=== PATIENT | male | born 1960 ===

== ENCOUNTER 2019-07-05 10:38 | Day surgery (SDC) | payer OTHER ==
[2019-07-05] VITALS (9 sets, daily range): BP systolic 91–137; BP diastolic 44–77
[~2019-07-05] VITALS: Ht 172.7 cm; Wt 75.7 kg
[~2019-07-05 10:38] MED LIST: LR 1000ml 1,000 ML IVLG SCH
[2019-07-05] MEDS ORDERED: NKM (11:28)
[2019-07-05] MEDS ORDERED: LR 1000ml 1,000 ML IVLG SCH (11:29)
[2019-07-05] MEDS ORDERED: fentaNYL 100 mcg/2 mL IV PRN (11:30)
[2019-07-05] MEDS ORDERED: DiphenhydrAMINE 50mg/ml Inj IVP PRN (11:30)
[2019-07-05] MEDS ORDERED: TESTOSTERO100 MG/1 M IM (11:30)
[2019-07-05] MEDS ORDERED: Atropine Sulfate 0.4mg/ml inj IVP PRN (11:30)
[2019-07-05] MEDS ORDERED: Midazolam 2mg/2ml Inj IVP PRN (11:30)
--- NOTE | 2019-07-05 11:32 | Anethesia Preoperative Eval ---
Anesthesia Pre-op PMH/ROS General Date of Evaluation: Jul 05, 2019 Time of Evaluation: 11:30 Anesthesiologist: lianna ASA Score: ASA 2 Mallampati Score Class I : Soft palate, uvula, fauces, pillars visible Class II: Soft palate, uvula, fauces visible Class III: Soft palate, base of uvula visible Class IV: Only hard plate visible Mallampati Classification: Class II Surgeon: chava Surgical Procedure: egd/colonoscopy Anesthesia History: none Social History: smoking - nonsmoker Family History: no anesthesia problems Allergies: Coded Allergies: No Known Allergies (Unverified , 07/02/19) Medications: see eMAR Patient NPO?: Yes Past Medical History Gastrointestinal/Genitourinary: Reports: GERD, other - abdominal pain Musculoskeletal/Integumentary: Reports: other - back pain PSxH Narrative: testicular surgery Anesthesia Pre-op Phys. Exam Physician Exam Last Vital Signs Date Time Temp Pulse Resp B/P (MAP) Pulse Ox O2 Delivery O2 Flow Rate FiO2 07/05/19 11:21 98.8 78 18 137/77 99 Room Air Constitutional: NAD Neurologic: CN 2-12 intact Cardiovascular: RRR Respiratory: CTA Gastrointestinal: S/NT/ND Airway Exam Mallampati Score: Class II MO: full Neck: flexible TMD: 2fb ROM: full Anesthesia Pre-op A/P Studies Pre-op Studies: EKG - nsr Risk Assessment & Plan Assessment: asa2 Plan: mac Status Change Before Surgery: No Pre-Antibiotics Drug: Jackeline Mckinney MD Jul 05, 2019 11:32
[2019-07-05] MEDS ORDERED: Lidocaine 1% MPF 10mg/ml 5ml ONE (12:00)
[2019-07-05] MEDS ORDERED: LR 1000ml ONE (12:00)
[2019-07-05] MEDS ORDERED: Propofol 200mg/20ml IV ONE (12:00)
--- NOTE | 2019-07-05 12:24 | Pre-Procedure Note/Attestation ---
Pre-Procedure Note/Attestation Complete Prior to Procedure Planned Procedure: not applicable Procedure Narrative: esophagogastroduodenoscopy and colonoscopy Indications for Procedure Pre-Operative Diagnosis: GERD, screening colon Attestation I attest that I discussed the nature of the procedure; its benefits; risks and complications; and alternatives (and the risks and benefits of such alternatives ), prior to the procedure, with the patient (or the patient's legal education courses sales representative). I attest that, if there was a reasonable possibility of needing a blood transfusion, the patient (or the patient's legal education courses sales representative) was given the [facility] standardized written summary, pursuant to the [place] Blood Safety Act ([place] Health and Safety Code # 1645, as amended). I attest that I re-evaluated the patient just prior to the surgery and that there has been no change in the patient's H&P, except as documented below: Sourav Mabry MD Jul 05, 2019 12:24
--- NOTE | 2019-07-05 12:25 | Short Stay Surgery H&P ---
History of Present Illness History of Present Illness Chief Complaint screening colon, GERD HPI Marck Mitchell is a 59 year old male who was admitted on for Colon Screening , Gerd Patient History Allergies: Coded Allergies: No Known Allergies (Unverified , 07/02/19) Medication History Scheduled Testosterone Cypionate (Testosterone Cypionate), 100 MG IM ONCE A WEEK, ( Reported) Review of Systems Cardiovascular: Reports: no symptoms Respiratory: Reports: no symptoms Skeletal: Reports: no symptoms Gastrointestinal: Reports: gastro esophageal reflux disease Genitourinary: Reports: no symptoms Neurologic: Reports: no symptoms Endocrine: Reports: no symptoms Hematologic: Reports: no symptoms Physical Exam Vital Signs Last Vital Signs Date Time Temp Pulse Resp B/P (MAP) Pulse Ox O2 Delivery O2 Flow Rate FiO2 07/05/19 11:32 Room Air 07/05/19 11:21 98.8 78 18 137/77 99 Skin: normal HENT: normal Heart: normal Lungs: normal Abdomen: normal Extremities: normal Plan Plan of Care EGD and colonoscopy Attestation Are the patient's medical conditions optimized for surgery? Attestation Response: yes Sourav Mabry MD Jul 05, 2019 12:25
--- NOTE | 2019-07-05 12:56 | Endoscopy Procedure Note ---
Endoscopy Procedure Note General Indication for Procedure: screening colon, GERD Procedures Performed: EGD, colonoscopy Operative Findings/Diagnosis: colon mass Specimen: yes Pt Tolerated Procedure Well: Yes Estimated Blood Loss: none Anesthesia Anesthesiologist: cristian robles Anesthesia: MAC Medications Medication Given: see anesthesia record Inserted Devices Implant(s) used?: No Quality Quality of Bowel Preparation: Good Did scope reach the cecum?: Yes Was there any complications?: No GI Core Measures 50 yrs or older w/o bx or poly: No 10yrs. F/U recommended: Yes If not recommended, why?: Above average risk 18 years or older w/prev. colo: No Sourav Mabry MD Jul 05, 2019 12:56
--- NOTE | 2019-07-05 13:17 | Immediate Post-Op Evaluation ---
Immediate Post-Op Evalulation Immediate Post-Op Evalulation Procedure: egd/colonoscopy w/bx Date of Evaluation: Jul 05, 2019 Time of Evaluation: 13:14 IV Fluids: 600ml lr Blood Products: none Estimated Blood Loss: negligible Blood Pressure Systolic: 91 Blood Pressure Diastolic: 56 Pulse Rate: 70 Respiratory Rate: 18 O2 Sat by Pulse Oximetry: 100 Temperature (Fahrenheit): 97.9 Pain Score (1-10): 0 Nausea: No Vomiting: No Complications none Patient Status: awake, reacts, patent Hydration Status: adequate Drug: Jackeline Mckinney MD Jul 05, 2019 13:17
--- NOTE | 2019-07-05 13:19 | 48 Hour Post Anesthesia Eval ---
Post Anesthesia Evaluation Procedure: egd/colonoscopy w/bx Date of Evaluation: Jul 05, 2019 Time of Evaluation: 13:18 Blood Pressure Systolic: 95 0: 57 Pulse Rate: 76 Respiratory Rate: 18 Temperature (Fahrenheit): 97.9 O2 Sat by Pulse Oximetry: 100 Airway: patent Nausea: No Vomiting: No Pain Intensity: 0 Hydration Status: adequate Cardiopulmonary Status: stable Mental Status/LOC: patient returned to baseline Post-Anesthesia Complications: none Follow-up care needed: N/A Jackeline Hooper MD Jul 05, 2019 13:19
[2019-07-05 13:30] LABS: BASOPHILS % (AUTO) 0.7 % (0.0-2.0); EOSINOPHILS % (AUTO) 0.8 % (0.0-3.0); HEMATOCRIT 35.4 % (42.0-52.0); HEMOGLOBIN 11.4 G/DL (14.2-18.0); LYMPHOCYTES % (AUTO) 19.5 % (20.0-45.0); MEAN CORPUSCULAR VOLUME 83 FL (80-99); MONOCYTES % (AUTO) 8.3 % (1.0-10.0); NEUTROPHILS % (AUTO) 70.7 % (45.0-75.0); PLATELET COUNT 232 K/UL (150-450); RED BLOOD COUNT 4.24 M/UL (4.70-6.10); RED CELL DISTRIBUTION WIDTH 11.3 % (11.6-14.8); WHITE BLOOD COUNT 6.8 K/UL (4.8-10.8)
[2019-07-05 13:43] LABS: ANION GAP 11 mmol/L (5-15); BLOOD UREA NITROGEN 13 mg/dL (7-18); CALCIUM 8.5 MG/DL (8.5-10.1); CARBON DIOXIDE 27 MMOL/L (21-32); CHLORIDE 105 MMOL/L (98-107); POTASSIUM 3.2 MMOL/L (3.5-5.1); SODIUM 143 MMOL/L (136-145)
[2019-07-05 13:48] LABS: ALANINE AMINOTRANSFERASE 22 U/L (12-78); ALBUMIN 3.2 G/DL (3.4-5.0); ALBUMIN/GLOBULIN RATIO 1.1 (1.0-2.7); ALKALINE PHOSPHATASE 71 U/L (46-116); ASPARTATE AMINO TRANSFERASE 15 U/L (15-37); BILIRUBIN,TOTAL 0.5 MG/DL (0.2-1.0)
--- NOTE | 2019-07-05 19:45 | Procedure Note ---
DATE OF PROCEDURE: 07/05/2019 SURGEON: Sourav Mabry M.D. PROCEDURE: Upper endoscopy with biopsy and colonoscopy with biopsy. ANESTHESIA: Per Dr. Aguilar. INSTRUMENT: Olympus adult flexible upper endoscope and colonoscope. INDICATION: 1. Screening colonoscopy evaluation. 2. Chronic GERD. REASON FOR PROCEDURE: The procedure, risks, benefits, and possible consequences, including hemorrhage, aspiration, perforation and infection, and alternative treatments, were explained to the patient/legal guardian by Dr. Sourav Mabry and the patient/legal guardian understood and accepted these risks. PROCEDURE IN DETAIL: After informed consent was obtained and the patient was adequately sedated, Olympus upper endoscope was advanced from mouth into the second portion of the duodenum and retroflexion was performed in the stomach. GE junction was found to be about 35 cm from the incisors. There was no evidence of any esophagitis or esophageal mass. In the stomach, there was diffuse gastritis. Random biopsy from antrum was obtained to rule out H. pylori infection. At this time, the upper endoscope was retrieved and the patient was turned over for colonoscopy. First, rectal exam was performed, which was positive for small internal hemorrhoids. Then, the scope was the advanced from the rectum into cecum documented by appendiceal orifice, ileocecal valve, and right upper quadrant palpation. Quality of prep was fair. The patient had one small polyp in the cecum measured roughly about 3 to 4 mm removed with cold biopsy forceps technique. The patient had a colonic mass, circumferential in the ascending colon. This mass is large, I would say about at least 4 to 5 cm in length, ulcerative, fungating, highly suspicious for adenocarcinoma. Multiple biopsies from this mass was obtained and then distal part of this mass was tattooed for possible future surgery. At this time, the scope was gradually removed. Prep in the sigmoid was not adequate. Retroflexion of rectum showed evidence of small internal hemorrhoids. SUMMARY OF FINDINGS: 1. Gastritis, status post biopsy. 2. Colonic polyp removed, see above for details. 3. Large colonic mass in the ascending colon, status post biopsy and tattoo. 4. Small internal hemorrhoids. RECOMMENDATIONS: Follow up biopsy results and treat accordingly. We are going to order CA level today. We are going to get authorization for for staging and depending on the staging the patient would need to see the surgeon or oncologist. We will follow. Sourav Mabry M.D. DR: Yasmany JOB#: [id number] CC:
--- NOTE | 2019-07-13 15:00 | Cardiology Report ---
APPROVED REPORT EKG Measurement Heart [id number] <Conclusion> Normal sinus rhythm Normal ECG
== END 2019-07-05 14:25 | disposition home or self-care (01) ==
LOC: GAS 10:38
DX: Z12.11 Encounter for screening for malignant neoplasm of colon (principal); K21.9 Gastro-esophageal reflux disease without esophagitis; K29.70 Gastritis, unspecified, without bleeding; K63.5 Polyp of colon; K64.8 Other hemorrhoids; D12.0 Benign neoplasm of cecum; C18.2 Malignant neoplasm of ascending colon
CPT/HCPCS: 36415; 43239; 45380; 45381; 80053; 82378; 85025; 93005; J2704; J7120; 94003; 94150

== ENCOUNTER → 2019-07-07 | Outpatient (CLI) | payer OTHER ==
[~2019-07-07] MED LIST changes: -LR 1000ml 1,000 ML IVLG SCH; +NKM; +TESTOSTERO100 MG/1 M IM
--- NOTE | 2019-07-07 12:31 | Diagnostic Imaging Report ---
CLINICAL INDICATION:Chest and abdominal pain TECHNIQUE: Patient ingested oral contrast. IV administration nonionic contrast. Multiphasic spiral acquisitions obtained through the chest, abdomen, and pelvis. Multiplanar reconstructions were generated. Total dose length product 1992 mGycm. CTDIvol(s) 19, 85, 16, 16 mGy. Radiation dose was minimized using automated exposure control COMPARISON: none FINDINGS Chest: The lungs are clear. No infiltrates, effusions, masses, or nodules are demonstrated. The heart size is normal. No pericardial effusion demonstrated. No mediastinal or hilar mass or adenopathy. The thyroid demonstrates a 15 mm low-attenuation lesion in the lower pole of the right thyroid lobe and a subcentimeter low-attenuation lesion in the upper pole of the left thyroid lobe. No axillary or chest wall mass or adenopathy. The bones are unremarkable. The esophagus is unremarkable. Abdomen pelvis: There is a mass within the hepatic flexure of the colon. This appears to be circumferential, measures 3.6 cm AP diameter by 4.3 cm craniocaudad diameter by approximately 6 cm in length. This appears to extend to the serosal surface. There are prominent regional lymph nodes demonstrated, measuring up to 14 mm in diameter. No other liver lesions are demonstrated. There is equivocal mild wall thickening of the distal sigmoid and rectum, but this is probably an artifact of under distention. The appendix is normal. Contrast is seen throughout the entirety of the small bowel and reaches the colon although is not seen distal to the mass. No small bowel wall thickening. No free or loculated intraperitoneal gas or fluid is evident. The stomach and duodenum are unremarkable. There is a tiny left inguinal hernia contains only fat A 3 cm diameter low-attenuation lesion is demonstrated within segment 2 of the liver. This demonstrates some peripheral nodular enhancement which is somewhat intense on the arterial phase images. Within segment 8, there is a low-attenuation lesion which measures 17 x 10 mm, is only barely visible on the arterial phase images, more conspicuous on the venous phase images, demonstrates a small amount of enhancement. Also in segment 8 of the liver is an area of hyperenhancement which measures 1 cm diameter, more striking on the arterial phase images. Subcentimeter low-attenuation lesions are seen within segments 2 and 5. These are too small to characterize. The gallbladder, bile ducts, pancreas, spleen, adrenals are unremarkable. The kidneys demonstrate subcentimeter low-attenuation lesions which are too small to characterize. No renal or ureteral calculi, hydronephrosis, or hydroureter demonstrated. No retroperitoneal or mesenteric mass or adenopathy. A few small prominent nodes are seen in the upper periaortic region and also in the peripancreatic region. No pelvic mass or adenopathy. The prostate is enlarged, measuring 5 cm transverse. The bladder is unremarkable. IMPRESSION: 3.6 x 4.3 mass extending over a 6 cm length within the hepatic flexure of the colon, suspicious for malignancy. Patient apparently had recent colonoscopy; correlate with findings of this exam. Findings raises possibility of extension to the serosal surface and prominent regional lymph nodes suggest local or adenopathy There is a 3 cm diameter lesion within segment 2 of the liver, and a 1.7 cm lesion within segment 8. Given the above findings, the possibility that these represent metastatic deposits should be considered. However, these both also have some nodular enhancement that raises the the possibility that either or both of these may represent benign hemangiomas. Consider dedicated hemangioma protocol CT or liver specific MRI with hemangioma protocol for further evaluation 1 cm hyperenhancing area in segment 8 of the liver. While possibly a so-called transient hepatic attenuation difference, this is less likely given persistence of the finding on the venous phase exam. Differential considerations include atypical hemangioma, primary hepatic neoplasm. This is less likely to be a metastatic deposit given the enhancement characteristics Subcentimeter low-attenuation liver lesions which are too small to characterize No evidence of pulmonary metastases 15 mm lower pole right thyroid lobe lesion. Further evaluation with sonography is recommended Subcentimeter low-attenuation renal lesions, too small to characterize, most likely benign simple cysts Prostatomegaly Incidental finding tiny fat-containing left inguinal hernia The CT scanner at [facility] is accredited by the [employer] and the scans are performed using protocols designed to limit radiation exposure to as low as reasonably achievable to attain images of sufficient resolution adequate for diagnostic evaluation.
== END | disposition home or self-care (01) ==
LOC: CAT 09:08
DX: R07.9 Chest pain, unspecified (principal); R10.9 Unspecified abdominal pain; K40.90 Unilateral inguinal hernia, without obstruction or gangrene, not specified as recurrent; N40.0 Benign prostatic hyperplasia without lower urinary tract symptoms; K76.9 Liver disease, unspecified
CPT/HCPCS: 71260; 74177; Q9967